=== PATIENT | female | born 1965 | race Caucasian/White ===

== ENCOUNTER 2017-10-09 07:07 | Day surgery (SDC) | payer OTHER ==
[~2017-10-09 07:07] MED LIST: Bupivacaine 0.5%/EPINEPHrine 1:200,000 50 ML MDV ONE
[2017-10-09] MEDS ORDERED: Propofol 200 MG/20 ML SDV ONE (07:09)
[2017-10-09] MEDS ORDERED: Rocuronium 50 MG/5 ML Vial ONE (07:09)
[2017-10-09] MEDS ORDERED: Dexamethasone 4 MG/ML SDV ONE (07:09)
[2017-10-09] MEDS ORDERED: fentaNYL 250 MCG/5 ML SDV ONE (07:09)
[2017-10-09] MEDS ORDERED: Succinylcholine 200 MG/10 ML MDV ONE (07:09)
[2017-10-09] MEDS ORDERED: Neostigmine Methylsulfate 1 MG/ML 5 ML Syringe ONE (07:09)
[2017-10-09] MEDS ORDERED: Ondansetron 4 MG/2 ML SDV ONE (07:09)
[2017-10-09] MEDS ORDERED: Glycopyrrolate 0.2 MG/ML 5 ML MDV ONE (07:09)
[2017-10-09] MEDS ORDERED: cefOXitin 2 GM in Sodium Chloride 0.9% 50 ML IV ONE (07:10)
[2017-10-09] MEDS ORDERED: Dextrose 5%-Lactated Ringers 1,000 ML IV SCH (07:30)
[2017-10-09] MEDS ORDERED: Acetaminophen 500 MG Tab PO ONE (08:00)
[2017-10-09] MEDS ORDERED: Lidocaine 2% 100 MG/5 ML Syringe IVPUSH ONE (08:45)
[2017-10-09] MEDS ORDERED: Ketamine 500 MG/5 ML MDV IV SCH (08:45)
[2017-10-09] MEDS ORDERED: Ropivacaine 43 ML, Dexamethasone 8 MG, EPINEPHrine 0.4 MG, Sodium Chloride 0.9% 34.6 ML NERVRT SCH ×4 (08:45)
[2017-10-09] MEDS ORDERED: fentaNYL 100 MCG/2 ML SDV ONE (10:24)
[2017-10-09] MEDS ORDERED: HYDROmorphone/Normal Saline 15 MG/30 ML PCA IV PRN (12:30)
[2017-10-09] MEDS ORDERED: Naloxone 0.4 MG/ML SDV IV PRN (12:30)
[2017-10-09] MEDS ORDERED: HYDROmorphone 2 MG Tab PO PRN (12:37)
[2017-10-09] MEDS ORDERED: Ondansetron 4 MG/2 ML SDV IVPUSH PRN (13:00)
[2017-10-09] MEDS: Dextrose 5%-Lactated Ringers 1,000 ML IV SCH ×2 (13:36→22:41)
[2017-10-09] MEDS: Lidocaine 0.4%/D5W 2 GM/500 ML BAG IV SCH (13:37)
[2017-10-09] MEDS ORDERED: Pantoprazole 40 MG Vial IVPUSH SCH (14:00)
[2017-10-09] MEDS: Acetaminophen 325 MG Tab PO SCH ×2 (16:49→21:44)
[2017-10-09] MEDS: cefOXitin 2 GM in Sodium Chloride 0.9% 50 ML IV SCH ×2 (16:49→21:46)
[2017-10-10] MEDS: Acetaminophen 325 MG Tab PO SCH ×3 (02:38→10:12)
[2017-10-10] MEDS: cefOXitin 2 GM in Sodium Chloride 0.9% 50 ML IV SCH ×2 (02:48→08:38)
[2017-10-10] MEDS: Lidocaine 0.4%/D5W 2 GM/500 ML BAG IV SCH (07:44)
[2017-10-10 07:48] VITALS: BP 147/72
--- NOTE | 2017-10-11 04:28 | DISCH ---
ADMISSION DIAGNOSES: 1. Cholecystitis. 2. Diverticulitis of colon. 3. Gastroesophageal reflux disease. 4. Family history of early coronary artery disease. DISCHARGE DIAGNOSES: Diagnostic laparoscopy with cholecystectomy, partial omentectomy, drainage of intraabdominal abscess of adjacent omentum and fatty liver for subacute and chronic cholecystitis and cholelithiasis, omentum adherent to the abdominal wall with adjacent intraabdominal adhesions and fatty liver, date of surgery 10/09/2017, surgeon, Clay Cardona MD. HISTORY: Marybel Martin is a 52-year-old female with chronic right upper quadrant abdominal pain for approximately 18 months. After preoperative evaluation and discussion of possible risks and possible complications, she wished to proceed with surgical procedure. HOSPITAL COURSE: Marybel had her surgery on 10/09/2017. She had no operative complications. On postop day #1, she was able to be discharged to home. PHYSICAL EXAMINATION: GENERAL: Marybel is a 52-year-old female. VITAL SIGNS: Height is 5 feet, 5 inches, weight is 192 pounds. TPR is 98.1, 67, 18, blood pressure 152/79. HEENT: Negative. NECK: Supple. HEART: Regular rate and rhythm. LUNGS: Clear. ABDOMEN: Dressings dry and intact. Abdominal binder is on. FLASH drain is intact and will be removed prior to discharge. It has been draining a light pink serosanguineous drainage of 20 mL. EXTREMITIES: Without peripheral edema. DISPOSITION: Discharged to home. CONDITION: Stable and improving. FOLLOWUP APPOINTMENT: Fawn Chávez PA-C, on 10/19/2017 at 9 a.m. HOME MEDICATIONS: 1. Tylenol 650 mg q.6 h. p.r.n. pain. 2. Dilaudid 2 mg 1 to 2 every 4 hours p.r.n. pain, #30. 3. She is to resume her home medications of probiotic 1 daily and multivitamin 1 capsule daily. DISCHARGE INSTRUCTIONS: 1. Diet after discharge: Usual diet as tolerated. Drink 8 to 10 glasses of water a day. 2. Activity: No lifting greater than 10 pounds for 2 weeks. 3. Driving after discharge: Do not drive on pain medication. 4. Shower: May shower. 5. Wear abdominal binder for 2 weeks and then as tolerated. 6. Notify provider if any fever, nausea, or vomiting. 7. Keep site clean and dry. SPECIAL INSTRUCTIONS: Use incentive spirometer 10 times every hour while awake for 1 week.
--- NOTE | 2017-10-17 15:04 | OR ---
DATE OF PROCEDURE: 10/09/2017 PREOPERATIVE DIAGNOSIS: Subacute and chronic cholecystitis. POSTOPERATIVE DIAGNOSES: 1. Subacute and chronic cholecystitis and cholelithiasis. 2. Omentum adherent to the abdominal wall with adjacent intra-abdominal abscess. 3. Fatty infiltrated liver. OPERATIVE PROCEDURE: Diagnostic laparoscopy with: 1. Cholecystectomy (03475). 2. Partial omentectomy (36444). 3. Drainage of intra-abdominal abscess adjacent to omentum (29302). 4. Ted-Cut needle liver biopsy (48782). ASSISTANTS: Fawn Chávez PA-C and LILLIE Remy3. ANESTHESIA: General anesthesia. INDICATIONS FOR PROCEDURE: This is a 52-year-old presenting with some ongoing right upper and mid abdominal pain. Clinically, she appears to have a smoldering cholecystitis. The plan is to proceed with a laparoscopic cholecystectomy with other procedures as indicated based on operative findings and the possible need to convert to an open procedure were gone over. Potential risks otherwise including bleeding, infection, injury to underlying viscera, persistent symptoms postprocedure were all reviewed, and the patient wishes to proceed. DETAILS OF PROCEDURE: The patient was taken to the operating room. After general endotracheal anesthesia was induced, the abdomen was prepped and draped. In the mid epigastrium, a transverse incision was made. The peritoneal cavity entered under direct vision with Optiview trocar inflated to 15 mmHg pressure of CO2. Following this, a 12 mm subumbilical trocar was placed along with 5 mm right upper quadrant trocar. Findings included an area of omental adherence into the right upper quadrant. As this was pulled down and , an abscess was noted between the omentum and the abdominal wall. This appeared to be entirely intraperitoneal extending from the abdominal wall structures into themselves. The gallbladder was also quite distended and chronically as well as subacutely inflamed. The liver as expected per preoperative imaging was quite fatty infiltrated grossly, but without evidence of cirrhosis. At this point, the abscess was drained and cultures were obtained and a portion of the omentum then excised using a Harmonic scalpel. This was placed into a specimen bag and retrieved through the epigastric trocar site. Following this, attention was taken to the cholecystectomy. Gallbladder retracted anteriorly and laterally and dissection began on the gallbladder neck, continued around the gallbladder neck cystic duct junction. Once that area was well delineated, three clips were placed proximally, one distally and the gallbladder neck cystic junction divided. The cystic artery had simultaneously been exposed and they were similarly clipped and divided. The gallbladder was then dissected off the gallbladder bed with the Harmonic scalpel and delivered through the epigastric trocar site. This was noted to contain numerous small stones. At this point, the Ted-Cut biopsies of the right lobe of the liver were obtained and minimal bleeding from the biopsy sites was controlled with electrocautery. The Chilo-Dow drain was then placed through the right lateral trocar site and positioned into the area of the gallbladder bed which also was nearby the overlying abscess and the trocar was then subsequently removed. The fascia at the 12 mm sites was closed with 0 Vicryl stitch and the skin was closed with 4-0 Vicryl skin stitch. Dressing was applied. The patient was taken to the recovery room in satisfactory condition. Physician botany laboratory assistant, Fawn Chávez, played an essential role in assisting in this case, helping to position the patient, retract structures as needed, as well as suturing and cutting sutures when indicated. Her presence improved the patient safety and decreased the operative time. Clay Cardona MD /[id number]
== END 2017-10-10 10:36 | disposition home or self-care (01) ==
LOC: JP.SDS 07:07 → JP.2SS 11:15 → JP.SDS 10-10 10:36
PROVIDERS: ATTEND Surgery
DX: K80.10 Calculus of gallbladder with chronic cholecystitis without obstruction (principal); K76.0 Fatty (change of) liver, not elsewhere classified; K65.4 Sclerosing mesenteritis; K21.9 Gastro-esophageal reflux disease without esophagitis; I10 Essential (primary) hypertension; Z88.8 Allergy status to other drugs, medicaments and biological substances; Z79.899 Other long term (current) drug therapy; F17.210 Nicotine dependence, cigarettes, uncomplicated
CPT/HCPCS: 36415; 47001; 47562; 49020; 49255; 82247; 83735; 84075; 84100; 85027; 87070; 87075; 87077; 87186; 87205; 88304; 88305; 88307; 88313; A9270; C9113; J0171; J0330; J0694; J1100; J2001; J2405; J2704; J2710; J2795; J3010; J7042; J7050

== ENCOUNTER 2019-11-16 08:48 | Emergency (ER) | payer SELFPAY ==
[2019-11-16 09:14] VITALS: BP 159/98; PULSE 78
--- NOTE | 2019-11-16 10:02 | EDM.PDOC ---
ED HPI GENERAL MEDICAL PROBLEM - General Chief Complaint: Genitourinary Problem Stated Complaint: UTI Time Seen by Provider: 11/16/19 09:30 Source of Information: Reports: Patient - History of Present Illness INITIAL COMMENTS - FREE TEXT/NARRATIVE: 54-year-old presents with concerns of urinary discomfort. She reports increased frequency and burning for the last couple days. No fever. No flank or pelvic pain. Reports distant history of UTIs. - Related Data Allergies Allergy/AdvReac Type Severity Reaction Status Date / Time aspirin [From Percodan] Allergy Intermediate Irritabilit Verified 11/16/19 09:07 y hydrocodone bitartrate Allergy Intermediate Itching Verified 11/16/19 09:07 [From Vicodin] oxycodone HCl [From Percocet] Allergy Intermediate Itching Verified 11/16/19 09: 07 oxycodone terephthalate Allergy Intermediate Irritabilit Verified 11/16/19 09:07 [From Percodan] y Home Meds: Home Meds Vivienne/Cell/Lipas/Malt/Prt/Lac/in [Digestive Enzymes Capsule] 2 cap PO DAILY [History] L.acidoph,Paracasei, B.lactis [Probiotic] 1 each PO DAILY 10/08/17 [History] Multivitamin with Minerals [Multiple Vitamin] 1 cap PO DAILY 10/08/17 [History] Acetaminophen [Tylenol] 650 mg PO QID tablet 10/10/17 [Rx] Nitrofurantoin Macrocrystal [Nitrofurantoin] 100 mg PO BID #10 capsule 11/16/19 [Rx] Past Medical History Gastrointestinal History: Reports: Cholelithiasis 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: Musculoskeletal History: Reports: Other (See Below) Other Musculoskeletal History: foot and left elbow Oncologic (Cancer) History: Reports: Cervix Dermatologic History: Reports: Eczema - Past Surgical History GI Surgical History: Reports: Other (See Below) Other GI Surgeries/Procedures: large bowel resection Female Surgical History: Reports: Hysterectomy Musculoskeletal Surgical History: Reports: Other (See Below) Other Musculoskeletal Surgeries/Procedures:: foot Social & Family History - Family History HEENT: Reports: None - Tobacco Use Smoking Status *Q: Current Every Day Smoker Years of Tobacco use: 30 Packs/Tins Daily: 0.5 - Caffeine Use Caffeine Use: Reports: Coffee, Tea - Recreational Drug Use Recreational Drug Use: No ED ROS GENERAL - Review of Systems Review Of Systems: See Below Constitutional: Reports: No Symptoms HEENT: Reports: No Symptoms Respiratory: Reports: No Symptoms Cardiovascular: Reports: No Symptoms Endocrine: Reports: No Symptoms GI/Abdominal: Reports: No Symptoms : Reports: Dysuria, Frequency. Denies: Flank Pain Musculoskeletal: Reports: No Symptoms Skin: Reports: No Symptoms Neurological: Reports: No Symptoms Psychiatric: Reports: No Symptoms Hematologic/Lymphatic: Reports: No Symptoms Immunologic: Reports: No Symptoms ED EXAM, RENAL/ - Physical Exam Exam: See Below Exam Limited By: No Limitations General Appearance: Alert, No Apparent Distress Ears: Normal External Exam Nose: Normal Inspection Throat/Mouth: Normal Inspection Head: Atraumatic, Normocephalic Neck: Normal Inspection Respiratory/Chest: No Respiratory Distress Cardiovascular: Regular Rate, Rhythm GI/Abdominal: Soft, Non-Tender Back Exam: No: CVA Tenderness (R), CVA Tenderness (L) Extremities: Normal Inspection Neurological: Alert, Oriented Psychiatric: Normal Affect, Normal Mood Skin Exam: Warm, Dry Course - Vital Signs Last Recorded V/S: Last Vital Signs Temp 36.4 C 11/16/19 09:09 Pulse 78 11/16/19 09:09 Resp 20 11/16/19 09:09 BP 159/98 H 11/16/19 09:09 Pulse Ox 96 11/16/19 09:09 - Orders/Labs/Meds Labs: Laboratory Tests 11/16/19 Range/Units 09:19 Urine Color Yellow (YELLOW) Urine Appearance Cloudy A (CLEAR) Urine pH 6.0 (5.0-8.0) Ur Specific [place] 1.025 (1.008-1.030) Urine Protein 100 H (NEGATIVE) mg/dL Urine Glucose (UA) Negative (NEGATIVE) mg/dL Urine Ketones Negative (NEGATIVE) mg/dL Urine Occult Blood Large H (NEGATIVE) Urine Nitrite Positive H (NEGATIVE) Urine Bilirubin Negative (NEGATIVE) Urine Urobilinogen 0.2 (0.2-1.0) EU/dL Ur Leukocyte Esterase Moderate H (NEGATIVE) Urine RBC >100 H (0-5) Urine WBC 40-50 H (0-5) Ur Epithelial Cells Moderate Amorphous Sediment Not seen Urine Bacteria Many Urine Mucus Not seen - Re-Assessments/Exams Free Text/Narrative Re-Assessment/Exam: 54-year-old presents with concerns of urinary symptoms. No fevers. Normal exam without flank pain. UA is indicative of infection. No evidence clinically that she has ascending infection or pyelonephritis. Discharged with prescription for nitrofurantoin. 11/16/19 11:25 Departure - Departure Time of Disposition: 10:00 Disposition: Home, Self-Care 01 Clinical Impression: UTI, Urinary tract infectious disease - Discharge Information *PRESCRIPTION DRUG MONITORING PROGRAM REVIEWED*: No *COPY OF PRESCRIPTION DRUG MONITORING REPORT IN PATIENT SUKHI: No Prescriptions: Nitrofurantoin Macrocrystal [Nitrofurantoin] 100 mg PO BID #10 capsule Instructions: Urinary Tract Infection, Adult, [id number] Referrals: PCP,None [Primary Care Provider] - Forms: ED Department Discharge Additional Instructions: You urine analysis is consistent with a UTI. Please take the prescribed antibiotic Return for fevers/chills, or pain in the flanks Sepsis Event Note - Evaluation Sepsis Screening Result: No Definite Risk - Focused Exam Vital Signs: Vital Signs Temp Pulse Resp BP Pulse Ox 11/16/19 09:09 36.4 C 78 20 159/98 H 96 Date Exam was Performed: 11/16/19 Time Exam was Performed: 11:23
== END 2019-11-16 10:13 | disposition home or self-care (01) ==
LOC: JP.ED 08:48
DX: N39.0 Urinary tract infection, site not specified (principal); F17.210 Nicotine dependence, cigarettes, uncomplicated; Z88.8 Allergy status to other drugs, medicaments and biological substances; Z88.5 Allergy status to narcotic agent
CPT/HCPCS: 81001; 99283

== ENCOUNTER 2019-12-27 02:12 | Emergency (ER) | payer SELFPAY ==
[2019-12-27 02:23] VITALS: BP 158/82; PULSE 60
--- NOTE | 2019-12-27 02:58 | EDM.PDOC ---
ED HPI GENERAL MEDICAL PROBLEM - General Chief Complaint: Genitourinary Problem Stated Complaint: POSSIBLE UTI Time Seen by Provider: 12/27/19 02:49 Source of Information: Reports: Patient, RN Notes Reviewed History Limitations: Reports: No Limitations - History of Present Illness INITIAL COMMENTS - FREE TEXT/NARRATIVE: 54-year-old female presents emergency department a complaint of dysuria, she has no back pain no fevers she had a urinary tract infection about 2 months ago but has not had one for several years. Pelvic Pain Score (Numeric/FACES): 3 - Related Data Allergies Allergy/AdvReac Type Severity Reaction Status Date / Time aspirin [From Percodan] Allergy Intermediate Irritabilit Verified 12/27/19 02:29 y hydrocodone bitartrate Allergy Intermediate Itching Verified 12/27/19 02:29 [From Vicodin] oxycodone HCl [From Percocet] Allergy Intermediate Itching Verified 12/27/19 02: 29 oxycodone terephthalate Allergy Intermediate Irritabilit Verified 12/27/19 02:29 [From Percodan] y Home Meds: Home Meds NK [No Known Home Meds] 12/27/19 [History] Past Medical History HEENT History: Reports: Impaired Vision Gastrointestinal History: Reports: Cholelithiasis 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: Musculoskeletal History: Reports: Fracture, Other (See Below) Other Musculoskeletal History: foot and left elbow Hematologic History: Reports: None Immunologic History: Reports: None Oncologic (Cancer) History: Reports: Cervix Dermatologic History: Reports: Eczema - Past Surgical History GI Surgical History: Reports: Cholecystectomy, Other (See Below) Other GI Surgeries/Procedures: large bowel resection Female Surgical History: Reports: Section, Hysterectomy, Oophorectomy Musculoskeletal Surgical History: Reports: Other (See Below) Other Musculoskeletal Surgeries/Procedures:: foot Social & Family History - Family History HEENT: Reports: None - Tobacco Use Tobacco Use Comment: current smoker - Caffeine Use Caffeine Use: Reports: Coffee - Recreational Drug Use Recreational Drug Type: Reports: Marijuana/Hashish ED ROS GENERAL - Review of Systems Review Of Systems: See Below Constitutional: Denies: Fever, Chills GI/Abdominal: Reports: No Symptoms : Reports: Dysuria Musculoskeletal: Reports: No Symptoms ED EXAM, RENAL/ - Physical Exam Exam: See Below Exam Limited By: No Limitations General Appearance: Alert, WD/WN, No Apparent Distress Respiratory/Chest: No Respiratory Distress GI/Abdominal: Soft, Non-Tender Back Exam: No: CVA Tenderness (R), CVA Tenderness (L) Course - Vital Signs Last Recorded V/S: Last Vital Signs Temp 97.4 F 12/27/19 02:22 Pulse 60 12/27/19 02:22 Resp 16 12/27/19 02:22 BP 158/82 H 12/27/19 02:22 Pulse Ox 96 12/27/19 02:22 - Orders/Labs/Meds Orders: Active Orders 24 hr Category Date Time Status CULTURE URINE [RM] Urgent Lab 12/27/19 02:50 Ordered Labs: Laboratory Tests 12/27/19 Range/Units 02:26 Urine Color [place] A (YELLOW) Urine Appearance Clear (CLEAR) Urine pH 6.5 (5.0-8.0) Ur Specific [place] 1.015 (1.008-1.030) Urine Protein 30 H (NEGATIVE) mg/dL Urine Glucose (UA) Negative (NEGATIVE) mg/dL Urine Ketones Negative (NEGATIVE) mg/dL Urine Occult Blood Large H (NEGATIVE) Urine Nitrite Negative (NEGATIVE) Urine Bilirubin Negative (NEGATIVE) Urine Urobilinogen 0.2 (0.2-1.0) EU/dL Ur Leukocyte Esterase Large H (NEGATIVE) Urine RBC Semi-packed H (0-5) Urine WBC Semi-packed H (0-5) Ur Epithelial Cells Not seen Amorphous Sediment Many Urine Bacteria Not seen Urine Mucus Not seen Departure - Departure Time of Disposition: 02:56 Disposition: Home, Self-Care 01 Condition: Fair Clinical Impression: UTI, Urinary tract infectious disease - Discharge Information Instructions: Urinary Tract Infection, Adult, [id number] Referrals: PCP,None [Primary Care Provider] - Additional Instructions: Take full course of antibiotics, the urine culture will be available in 3 to 4 days, follow-up with primary care at that time if not better, call or return to the emergency department worsening of symptoms Sepsis Event Note - Evaluation Sepsis Screening Result: No Definite Risk - Focused Exam Vital Signs: Vital Signs Temp Pulse Resp BP Pulse Ox 12/27/19 02:22 97.4 F 60 16 158/82 H 96 Date Exam was Performed: 12/27/19 Time Exam was Performed: 02:54 - My Orders Last 24 Hours: My Active Orders 12/27/19 02:50 CULTURE URINE [RM] Urgent - Assessment/Plan Last 24 Hours: My Active Orders 12/27/19 02:50 CULTURE URINE [RM] Urgent Plan: Assessment Acuity = acute Site and laterality = urinary tract infection Etiology = suspicious for bacterial cause contributed by vaginal atrophy Manifestations = none Location of injury = Home Lab values = urinalysis reveals packed RBCs and WBCs consistent with a hematuria and pyuria respectively Plan Elect to treat empirically Bactrim DS 1 tab p.o. twice daily x10 days follow-up primary care 3 to 5 days if not better culture should be available at that time This note was dictated using [employer] voice recognition software please call with any questions on syntax or grammar.
== END 2019-12-27 03:10 | disposition home or self-care (01) ==
LOC: JP.ED 02:12
DX: N39.0 Urinary tract infection, site not specified (principal); Z88.6 Allergy status to analgesic agent; Z88.5 Allergy status to narcotic agent
CPT/HCPCS: 81001; 87086; 99283

== ENCOUNTER 2020-02-10 06:28 | Emergency (ER) | payer SELFPAY ==
[2020-02-10 06:48] VITALS: BP 168/90; PULSE 71
--- NOTE | 2020-02-10 07:10 | EDM.PDOC ---
ED HPI GENERAL MEDICAL PROBLEM - General Chief Complaint: Genitourinary Problem Stated Complaint: UTI Time Seen by Provider: 02/10/20 06:55 Source of Information: Reports: Patient, RN Notes Reviewed History Limitations: Reports: No Limitations - History of Present Illness Onset: Today Duration: Day(s): Location: Reports: Abdomen Quality: Reports: Burning Bladder Pain Score (Numeric/FACES): 1 - Related Data Allergies Allergy/AdvReac Type Severity Reaction Status Date / Time aspirin [From Percodan] Allergy Intermediate Irritabilit Verified 02/10/20 06:42 y hydrocodone bitartrate Allergy Intermediate Itching Verified 02/10/20 06:42 [From Vicodin] oxycodone HCl [From Percocet] Allergy Intermediate Itching Verified 02/10/20 06:42 oxycodone terephthalate Allergy Intermediate Irritabilit Verified 02/10/20 06:42 [From Percodan] y Home Meds: Home Meds Sulfamethoxazole/Trimethoprim [Bactrim Ds Tablet] 1 each PO BID #14 tablet 02/10/20 [Rx] Past Medical History HEENT History: Reports: Impaired Vision Cardiovascular History: Reports: None Respiratory History: Reports: None Gastrointestinal History: Reports: Cholelithiasis 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: Musculoskeletal History: Reports: Fracture, Other (See Below) Other Musculoskeletal History: foot and left elbow Neurological History: Reports: None Psychiatric History: Reports: None Endocrine/Metabolic History: Reports: None Hematologic History: Reports: None Immunologic History: Reports: None Oncologic (Cancer) History: Reports: Cervix Dermatologic History: Reports: Eczema - Infectious Disease History Infectious Disease History: Reports: Chicken Pox, Measles - Past Surgical History GI Surgical History: Reports: Cholecystectomy, Other (See Below) Other GI Surgeries/Procedures: large bowel resection Female Surgical History: Reports: Section, Hysterectomy, Oophorectomy Musculoskeletal Surgical History: Reports: Other (See Below) Other Musculoskeletal Surgeries/Procedures:: foot Social & Family History - Family History HEENT: Reports: None - Tobacco Use Smoking Status *Q: Current Every Day Smoker Years of Tobacco use: 40 Packs/Tins Daily: 0.5 Used Tobacco, but Quit: No Second Hand Smoke Exposure: Yes - Caffeine Use Caffeine Use: Reports: Coffee - Recreational Drug Use Recreational Drug Use: No ED ROS GENERAL - Review of Systems Review Of Systems: See Below Constitutional: Reports: No Symptoms GI/Abdominal: Denies: Abdominal Pain : Reports: Dysuria. Denies: Flank Pain ED EXAM, RENAL/ - Physical Exam Exam: See Below Exam Limited By: No Limitations General Appearance: Alert, WD/WN, No Apparent Distress Respiratory/Chest: No Respiratory Distress GI/Abdominal: Soft, Non-Tender Back Exam: No: CVA Tenderness (R), CVA Tenderness (L) Course - Vital Signs Last Recorded V/S: Last Vital Signs Temp 96.9 F 02/10/20 06:47 Pulse 71 02/10/20 06:47 Resp 16 02/10/20 06:47 BP 168/90 H 02/10/20 06:47 Pulse Ox 98 02/10/20 06:47 - Orders/Labs/Meds Orders: Active Orders 24 hr Category Date Time Status CULTURE URINE [RM] Urgent Lab 02/10/20 07:05 Ordered Labs: Laboratory Tests 02/10/20 Range/Units 06:55 Urine Color Yellow (YELLOW) Urine Appearance Cloudy A (CLEAR) Urine pH 6.0 (5.0-8.0) Ur Specific [place] >= 1.030 (1.008-1.030) Urine Protein 30 H (NEGATIVE) mg/dL Urine Glucose (UA) Negative (NEGATIVE) mg/dL Urine Ketones Trace H (NEGATIVE) mg/dL Urine Occult Blood Moderate H (NEGATIVE) Urine Nitrite Positive H (NEGATIVE) Urine Bilirubin Negative (NEGATIVE) Urine Urobilinogen 0.2 (0.2-1.0) EU/dL Ur Leukocyte Esterase Moderate H (NEGATIVE) Urine RBC (0-5) Urine WBC Semi-packed H (0-5) Ur Epithelial Cells Few Amorphous Sediment Not seen Urine Bacteria Many Urine Mucus Not seen Departure - Departure Time of Disposition: 07:08 Disposition: Home, Self-Care 01 Condition: Fair Clinical Impression: UTI, Urinary tract infectious disease - Discharge Information Instructions: Urinary Tract Infection, Adult, [id number] Referrals: PCP,None [Primary Care Provider] - Additional Instructions: Take full course of antibiotics medications have been faxed to [facility] Sepsis Event Note (ED) - Evaluation Sepsis Screening Result: No Definite Risk - Focused Exam Vital Signs: Vital Signs Temp Pulse Resp BP Pulse Ox 02/10/20 06:47 96.9 F 71 16 168/90 H 98 - My Orders Last 24 Hours: My Active Orders 02/10/20 07:05 CULTURE URINE [RM] Urgent - Assessment/Plan Last 24 Hours: My Active Orders 02/10/20 07:05 CULTURE URINE [RM] Urgent Plan: Assessment Acuity = acute Site and laterality = urinary tract infection Etiology = probable bacterial cause Manifestations = dysuria Location of injury = Home Lab values = urinalysis reveals positive nitrates packed WBCs unable to count RBCs consistent with a pyuria cultures pending Plan Elected to treat Bactrim DS 1 tab p.o. twice daily x7 days follow-up primary care 3 to 5 days if not better This note was dictated using [employer] voice recognition software please call with any questions on syntax or grammar.
== END 2020-02-10 07:16 | disposition home or self-care (01) ==
LOC: JP.ED 06:28
DX: N39.0 Urinary tract infection, site not specified (principal); F17.210 Nicotine dependence, cigarettes, uncomplicated; Z88.6 Allergy status to analgesic agent; Z88.5 Allergy status to narcotic agent
CPT/HCPCS: 81001; 87086; 87088; 87186; 99282; 99283